=== PATIENT | male | born 1995 | race Caucasian/White ===

== ENCOUNTER 2020-01-08 15:11 | Emergency (ER) | payer OTHER ==
--- NOTE | 2020-01-08 15:34 | EDM.PDOC ---
ED HPI GENERAL MEDICAL PROBLEM - General Chief Complaint: Upper Extremity Injury/Pain Stated Complaint: HURT MIDDLE FINGER ON LEFT HAND Time Seen by Provider: 01/08/20 15:24 - History of Present Illness INITIAL COMMENTS - FREE TEXT/NARRATIVE: 24-year-old male presents the emergency room with an injury to his left middle finger. Patient was moving some heavy pipe and lost control of it and the end of the pipe caught the end of his finger. He has significant laceration circumferentially around the tip of the finger from the tip of the nail plate around. The patient has had a recent tetanus shot. He received a tetanus shot in June as a new employee to his current employer. Patient denies any other injury associated with this most unfortunate event. Left Finger-Middle Pain Score (Numeric/FACES): 7 - Related Data Allergies Allergy/AdvReac Type Severity Reaction Status Date / Time No Known Allergies Allergy Verified 01/08/20 15:31 Home Meds: Home Meds cephALEXin [Cephalexin] 500 mg PO Q6H #28 capsule 01/08/20 [Rx] Review of Systems - Review of Systems Review Of Systems: See Below Constitutional: Reports: No Symptoms Respiratory: Reports: No Symptoms Cardiovascular: Reports: No Symptoms GI/Abdominal: Reports: No Symptoms Musculoskeletal: Reports: Other (Left middle finger pain) ED EXAM, GENERAL - Physical Exam Exam: See Below Exam Limited By: No Limitations General Appearance: Alert, No Apparent Distress Respiratory/Chest: No Respiratory Distress, Lungs Clear, Normal Breath Sounds Cardiovascular: Regular Rate, Rhythm, No Edema, No Murmur Extremities: Other (Examination of his left hand shows a laceration on the distal middle finger. This is a circumferential laceration right at the level of the distal nail plate is now measures 5-1/2cm circumferentially around the tip of his finger tip) ED TRAUMA EXTREMITY PROCEDURES - Laceration/Wound Repair Left Digit - 3rd (Middle) Lac/Wound Length In cm: 5.5 Appearance: Subcutaneous Distal NVT: Other (Tissue looked pretty dusky initially but after reapproximation the color looked much better) Anesthetic Type: Digital Local Anesthesia - Lidocaine (Xylocaine): 1% Plain Local Anesthetic Volume: 4cc Exploration/Debridement/Repair: Wound Explored, In a Bloodless Field, Minimal Debridement, Foreign Material Removed Suture Size: 3-0 # of Sutures: 6 (2 of the stitches went through the nail plate 0.0) Suture Type: Simple Sterile Dressing Applied: Nurse Tetanus Status Addressed: Yes (Up-to-date) Complications: No Progress/Comments: The skin of the nail tip was reapproximated using simple stitches with good approximation to the stitches went through the nail plate using electrocautery to bur holes through the nail plate. Patient tolerated this without too much difficulty the color of the tip of the finger improved dramatically after reapproximation Course - Vital Signs Last Recorded V/S: Last Vital Signs Temp 36.8 C 01/08/20 15:34 Pulse 69 01/08/20 15:34 Resp 20 01/08/20 15:34 BP 125/80 01/08/20 15:34 Pulse Ox 97 01/08/20 15:34 - Orders/Labs/Meds Meds: Medications Discontinued Medications Generic Name Dose Route Start Last Admin Trade Name Pratibha PRN Reason Stop Dose Admin Cephalexin 500 mg 01/08/20 18:47 Keflex PO 01/08/20 18:48 ONETIME ONE Lidocaine HCl 10 ml 01/08/20 17:14 01/08/20 18:43 Xylocaine 1% INJECT 01/08/20 17:15 10 ml ONETIME ONE Administration - Re-Assessments/Exams Free Text/Narrative Re-Assessment/Exam: 01/08/20 18:55 X-ray of the left third finger shows no acute bony abnormalities no tuft frac ture which was the main concern. Departure - Departure Time of Disposition: 18:48 Disposition: Home, Self-Care 01 Clinical Impression: Laceration of left middle finger - Discharge Information Prescriptions: cephALEXin [Cephalexin] 500 mg PO Q6H #28 capsule Referrals: PCP,None [Primary Care Provider] - Forms: ED Department Discharge, ED Return to Work/School Form Additional Instructions: Return to the emergency room with any questions problems or worsening symptoms. Take the antibiotics as directed. Keep the area absolutely clean and dry for the next 48 hours. After 48 hours you can let water gently run over the area but only for a few seconds and then gently dab dry no scrubbing. No soaking. Suture removal in 12 days Sepsis Event Note (ED) - Focused Exam Vital Signs: Vital Signs Temp Pulse Resp BP Pulse Ox 01/08/20 15:34 36.8 C 69 20 125/80 97
--- NOTE | 2020-01-08 16:18 | CR ---
Left third finger: 4 views left third finger were obtained. Soft tissue injury and swelling is noted within the distal third finger. No acute fracture, dislocation or other bony abnormality is appreciated. Impression: 1. Soft tissue injury. 2. No acute bony abnormality is seen on left third finger study. Diagnostic code #2 Study was dictated in MDT
[2020-01-08] MEDS ORDERED: Lidocaine 1% 10 ML MDV INJECT ONE (17:14)
[2020-01-08] MEDS ORDERED: Cephalexin 500 MG Cap PO ONE (18:47)
== END 2020-01-08 19:06 | disposition home or self-care (01) ==
LOC: JD.ED 15:11
DX: S61.313A Laceration without foreign body of left middle finger with damage to nail, initial encounter (principal); W26.8XXA Contact with other sharp object(s), not elsewhere classified, initial encounter
CPT/HCPCS: 12042; 73140; 99283; A9270; J2001; 12002

== ENCOUNTER 2025-04-28 21:37 | Emergency (ER) | payer BC, OTHER | END 2025-04-28 22:51 | disposition home or self-care (01) | LOC: JD.ED 21:37 | DX: S90.32XA Contusion of left foot, initial encounter (principal); F17.200 Nicotine dependence, unspecified, uncomplicated; Z79.899 Other long term (current) drug therapy; W20.8XXA Other cause of strike by thrown, projected or falling object, initial encounter; Y93.89 Activity, other specified | CPT/HCPCS: 73630-26-LT; 73630-LT; 99283 ==